=== PATIENT | female | born 1990 | race Caucasian/White ===

== ENCOUNTER 2017-05-22 07:42 | Emergency (ER) | payer MEDICAID ==
[~2017-05-22] VITALS: Ht 175.3 cm; Wt 91.9 kg
[2017-05-22 07:47] VITALS: BP 150/62
--- NOTE | 2017-05-22 07:53 | NUR ---
PATIENT TAKEN TO BED 1
--- NOTE | 2017-05-22 08:00 | NUR ---
PATIENT PRESENTS TO ED WITH C/O EPIGASTRIC PAIN . PT STATES PAIN STARTS AFTER SHE LIFTED HEAVY BOXES;. DENIES N/V/D; SKIN IS PINK/WARM/DRY; AAOX4 WITH EVEN AND STEADY GAIT; LUNGS CLEAR BL; HR EVEN AND REGULAR; PT DENIES ANY FEVER, CP, SOB, OR COUGH AT THIS TIME; PATIENT STATES PAIN OF 5/10 AT THIS TIME;PATIENT POSITIONED FOR COMFORT; HOB ELEVATED; BEDRAILS UP X2; BED DOWN.ALL MONITORS IN PLACED; ER MD MADE AWARE OF PT STATUS.
--- NOTE | 2017-05-22 08:37 | NUR ---
DR ROSENBERG AT BEDSIDE.
--- NOTE | 2017-05-22 08:44 | NUR ---
ULTA SOUND AT BEDSIDE.
[2017-05-22] MEDS ORDERED: NACL 0.9% 1,000 ML IV ONE (08:45)
[2017-05-22] MEDS ORDERED: PANTOPRAZOLE 40 MG INJ VIAL IVP ONE (08:45)
[2017-05-22 09:11] LABS: BASOPHILS # (AUTO) 0.3 K/uL (0.00-0.22); BASOPHILS % (AUTO) 3.5 % (0.0-2.0); EOSINOPHILS # (AUTO) 0.1 K/uL (0-0.4); EOSINOPHILS % (AUTO) 1.5 % (0.0-4.0); HEMATOCRIT 37.6 % (36-48); HEMOGLOBIN 12.6 g/dL (12.0-16.0); LYMPHOCYTES # (AUTO) 1.7 K/uL (2.5-16.5); MEAN CORPUSCULAR HEMOGLOBIN 29 pg (27-31); MEAN CORPUSCULAR HGB CONC 33 g/dL (33-37); MEAN CORPUSCULAR VOLUME 87 fL (80-94); MONOCYTES # (AUTO) 0.5 K/uL (0.8-1.0); MONOCYTES % (AUTO) 5.9 % (1.7-9.3); NEUTROPHILS # (AUTO) 5.1 K/uL (1.8-7.7); NEUTROPHILS % (AUTO) 67.1 % (42.2-75.2); PLATELET COUNT (AUTO) 163 K/uL (140-450); RED BLOOD CELL COUNT(AUTO) 4.31 MIL/uL (4.20-5.40); RED CELL DISTRIBUTION WIDTH 12.8 % (11.6-13.7); WHITE BLOOD COUNT (AUTO) 7.7 K/uL (4.8-10.8)
[2017-05-22 09:29] LABS: CARBON DIOXIDE 25.2 mmol/L (21-32); CREATININE 0.8 mg/dL (0.6-1.3); POTASSIUM 3.2 mmol/L (3.5-5.1)
[2017-05-22 09:34] LABS: ALBUMIN 3.5 g/dL (3.4-5.0); TOTAL BILIRUBIN 0.4 mg/dL (0.0-1.0)
--- NOTE | 2017-05-22 10:03 | NUR ---
PATIENT RESTING COFORTABLY.
[2017-05-22 10:23] LABS: APPEARANCE,URINE CLEAR (CLEAR); BILIRUBIN,URINE NEGATIVE (NEGATIVE); BLOOD, URINE NEGATIVE (NEGATIVE); COLOR,URINE YELLOW (YELLOW); LEUKOCYTE ESTERASE ,URINE NEGATIVE (NEGATIVE); NITRITE, URINE NEGATIVE (NEGATIVE); PH,URINE 6.5 (5.0-9.0); UGLUCOSE NEGATIVE (NEGATIVE)
[2017-05-22 10:33] VITALS: BP 98/62
--- NOTE | 2017-05-22 10:35 | NUR ---
Patient discharged with v/s stable. Written and verbal after care instructions given and explained. Patient alert, oriented and verbalized understanding of instructions. Ambulatory with steady gait. All questions addressed prior to discharge. ID band removed. Patient advised to follow up with PMD. Rx of ZANTAC given. Patient educated on indication of medication including possible reaction and side effects. Opportunity to ask questions provided and answered.
[2017-05-22 10:40] LABS: RBC,URINE 0-5 (RARE) /HPF (0-5); WBC,URINE 0-5 (RARE) /HPF (0-5)
--- NOTE | 2017-05-28 18:54 | NUR ---
Medicatoin amendment: On 05/22/17 Pt pt revieved 999ml of 0.9%NS from 09:32 to 10:30. NS tolerated well.
== END 2017-05-22 10:35 | disposition home or self-care (01) ==
LOC: MED 07:42
DX: O26.891 Other specified pregnancy related conditions, first trimester (principal); K21.9 Gastro-esophageal reflux disease without esophagitis
CPT/HCPCS: 36415; 76801; 76817; 80053; 81001; 81025; 84702; 85025; 86900; 86901; 96361; 96374; 99285; C9113; J7030; Q0092

== ENCOUNTER 2017-05-26 16:35 | Emergency (ER) | payer MEDICAID ==
[~2017-05-26] VITALS: Ht 175.3 cm; Wt 88.6 kg
[2017-05-26 16:43] VITALS: BP 129/64
--- NOTE | 2017-05-26 16:50 | NUR ---
PT AMBULATES BACK TO THE LOBBY AFTER PROVIDING URINE SPECEMIN
--- NOTE | 2017-05-26 20:06 | NUR ---
PATIENT LEFT WITHOUT BEING SEEN BY DR. SOUZA. NO FURTHER CARE PROVIDED FOR PATIENT.
== END 2017-05-26 20:06 | disposition left against medical advice (07) ==
LOC: MED 16:35
DX: R05 Cough (principal); R51 Headache; Z53.21 Procedure and treatment not carried out due to patient leaving prior to being seen by health care provider

== ENCOUNTER 2020-05-08 17:36 | Emergency (ER) | payer MEDICAID ==
[~2020-05-08] VITALS: Ht 175.3 cm; Wt 81.6 kg
[2020-05-08 19:25] VITALS: BP 136/71
--- NOTE | 2020-05-08 19:28 | NUR ---
TO LOBBY A/W BED AMBULATORY
[2020-05-08 19:33] LABS: BASOPHILS % (AUTO) 0.5 % (0.0-2.0); EOSINOPHILS # (AUTO) 0.2 K/uL (0-0.4); HEMATOCRIT 38.2 % (36-48); HEMOGLOBIN 12.5 g/dL (12.0-16.0); LYMPHOCYTES # (AUTO) 2.1 K/uL (2.5-16.5); LYMPHOCYTES % (AUTO) 23.9 % (20.5-51.1); MEAN CORPUSCULAR HEMOGLOBIN 28 pg (27-31); MEAN CORPUSCULAR HGB CONC 33 g/dL (33-37); MEAN CORPUSCULAR VOLUME 86.4 fL (80-94); MONOCYTES # (AUTO) 0.6 K/uL (0.8-1.0); MONOCYTES % (AUTO) 7.2 % (1.7-9.3); NEUTROPHILS # (AUTO) 5.9 K/uL (1.8-7.7); NEUTROPHILS % (AUTO) 66.4 % (42.2-75.2); PLATELET COUNT (AUTO) 219 K/uL (140-450); RED BLOOD CELL COUNT(AUTO) 4.42 MIL/uL (4.20-5.40); RED CELL DISTRIBUTION WIDTH 14.1 % (11.6-13.7); WHITE BLOOD COUNT (AUTO) 8.8 K/uL (4.8-10.8)
[2020-05-08 20:04] LABS: ALBUMIN 3.6 g/dL (3.4-5.0); ANION GAP 9.6 (8-16); CARBON DIOXIDE 27.8 mmol/L (21-32); CREATININE 0.7 mg/dL (0.6-1.3); FREE T4 (FREE THYROXINE) 1.1 ng/dL (0.76-1.46); POTASSIUM 4.4 mmol/L (3.5-5.1); THYROID STIMULATING HORMONE 3.14 uIU/mL (0.34-3.74); TOTAL BILIRUBIN 0.2 mg/dL (0.0-1.0)
== END 2020-05-08 21:56 | disposition home or self-care (01) ==
LOC: MED 17:36
DX: O20.0 Threatened abortion (principal); O21.8 Other vomiting complicating pregnancy; Z3A.01 Less than 8 weeks gestation of pregnancy
CPT/HCPCS: 36415; 76801; 80053; 81002; 81025; 84439; 84443; 84702; 85025; 86900; 86901; 99284

== ENCOUNTER 2021-07-11 17:03 | Emergency (ER) | payer MEDICAID ==
[~2021-07-11] VITALS: Ht 175.3 cm; Wt 103.0 kg
[2021-07-11 17:06] VITALS: BP 115/74
--- NOTE | 2021-07-11 17:10 | NUR ---
31/F AMBULATED TO BED 4, C/O BILATERAL UNDERARM ABSCESSES X4 DAYS, DENIES DRAINAGE OR BLEEDING, DENIES TAKING ANYTHING FOR PAIN. MEDHX: DENIES ALLERGIES: DENIES
[2021-07-11] MEDS ORDERED: KETOROLAC 60 MG/2 ML VIAL IM ONE (17:15)
[2021-07-11] MEDS ORDERED: CEPH-588 PO (17:21)
[2021-07-11] MEDS ORDERED: IBUP-2213 PO (17:21)
[2021-07-11 17:31] VITALS: BP 115/74
--- NOTE | 2021-07-11 17:31 | NUR ---
Patient discharged with v/s stable. Written and verbal after care instructions given and explained. Patient alert, oriented and verbalized understanding of instructions. Ambulatory with steady gait. All questions addressed prior to discharge. ID band removed. Patient advised to follow up with PMD. Rx of KEFLEX, IBUPROFEN given. Patient educated on indication of medication including possible reaction and side effects. Opportunity to ask questions provided and answered.
== END 2021-07-11 17:31 | disposition home or self-care (01) ==
LOC: MED 17:03
DX: L02.412 Cutaneous abscess of left axilla (principal); L02.411 Cutaneous abscess of right axilla; L03.112 Cellulitis of left axilla; L03.111 Cellulitis of right axilla; Z98.890 Other specified postprocedural states
CPT/HCPCS: 96372; 99283; J1885

== ENCOUNTER 2021-12-20 10:58 | Emergency (ER) | payer MEDICAID ==
[~2021-12-20] VITALS: Ht 175.3 cm; Wt 96.7 kg
[~2021-12-20 10:58] MED LIST: CEPH-588 PO; IBUP-2213 PO
[2021-12-20 11:22] VITALS: BP 130/79
[2021-12-20] MEDS ORDERED: IBUP-2213 PO (12:03)
[2021-12-20] MEDS ORDERED: CEPH-588 PO (12:03)
--- NOTE | 2021-12-20 12:17 | NUR ---
31 Y.O. F C/O ABSCESS ON RIGHT SHOULDER BLADE X 1 WEEK. REDNESS AROUND AREA. PT STATED IT GETS VERY ITCHY AND PAIN IS AN 8/10. PT STATES SHE HAS NASEA. DENIES V/D, SOB AND CHEST PAIN. A&OX4, SKIN IS WARM AND DRY, STEADY GAIT, AND VITALS WNL FOR PT. NKA NPMH
[2021-12-20 12:24] VITALS: BP 130/79
== END 2021-12-20 12:25 | disposition home or self-care (01) ==
LOC: MED 10:58
DX: O26.891 Other specified pregnancy related conditions, first trimester (principal); L03.113 Cellulitis of right upper limb; Z3A.01 Less than 8 weeks gestation of pregnancy
CPT/HCPCS: 81025; 99283

== ENCOUNTER 2022-03-04 21:33 | Emergency (ER) | payer MEDICAID ==
[~2022-03-04] VITALS: Ht 175.3 cm; Wt 101.2 kg
[2022-03-04 21:45] VITALS: BP 121/59
--- NOTE | 2022-03-04 21:49 | NUR ---
PT AMBULATED TO ED 8, REPORT GIVEN TO IVANA DAMON
--- NOTE | 2022-03-04 21:54 | NUR ---
Myah hung in [facility] - 03/04/22 at 2154 by LINDSAY US
--- NOTE | 2022-03-04 21:54 | NUR ---
Ultrasound at bedside.
[2022-03-04 22:06] LABS: BASOPHILS % (AUTO) 0.6 % (0.0-2.0); EOSINOPHILS # (AUTO) 0.1 K/uL (0-0.4); EOSINOPHILS % (AUTO) 1.8 % (0.0-4.0); HEMATOCRIT 36.6 % (36-48); HEMOGLOBIN 12.5 g/dL (12.0-16.0); LYMPHOCYTES # (AUTO) 1.9 K/uL (2.5-16.5); LYMPHOCYTES % (AUTO) 26.5 % (20.5-51.1); MEAN CORPUSCULAR HEMOGLOBIN 29 pg (27-31); MEAN CORPUSCULAR HGB CONC 34 g/dL (33-37); MEAN CORPUSCULAR VOLUME 85.1 fL (80-94); MONOCYTES # (AUTO) 0.5 K/uL (0.8-1.0); MONOCYTES % (AUTO) 6.3 % (1.7-9.3); NEUTROPHILS # (AUTO) 4.7 K/uL (1.8-7.7); NEUTROPHILS % (AUTO) 64.8 % (42.2-75.2); PLATELET COUNT (AUTO) 205 K/uL (140-450); RED CELL DISTRIBUTION WIDTH 14.9 % (11.6-13.7); WHITE BLOOD COUNT (AUTO) 7.3 K/uL (4.8-10.8)
[2022-03-04] MEDS ORDERED: ACETAMINOPHEN EXTRA STRENGTH 500 MG TAB PO ONE (22:10)
--- NOTE | 2022-03-04 22:10 | NUR ---
Dr. Cobb examining patient.
[2022-03-04 22:35] LABS: APPEARANCE,URINE CLEAR (CLEAR); BILIRUBIN,URINE NEGATIVE (NEGATIVE); BLOOD, URINE NEGATIVE (NEGATIVE); COLOR,URINE YELLOW (YELLOW); LEUKOCYTE ESTERASE ,URINE TRACE (NEGATIVE); NITRITE, URINE NEGATIVE (NEGATIVE); PH,URINE 7.5 (5.0-9.0); UGLUCOSE NEGATIVE (NEGATIVE)
--- NOTE | 2022-03-04 22:41 | NUR ---
URINE COLLECTED AND SENT TO LAB
[2022-03-04 22:45] LABS: RBC,URINE 0-5 /HPF (0-5); WBC,URINE 0-5 /HPF (0-5)
--- NOTE | 2022-03-04 22:45 | NUR ---
31YR OLD FEMALE BIB SELF C/O OF ABD CRAMPING X1DAY. PT IS 16 WKS PREG. DENIES VAG BLEEDING OR DISCHARGE. DENIES PAIN BUT HAS DISCOMFORT WITH CRAMPING. ULTRASOUND DONE AT BEDSIDE. PT IS A&OX4 SKIN WARM DRY AND INTACT. NO DISTRESS NOTED. NKDA NO MED HX
[2022-03-04] MEDS ORDERED: ACET-10509 PO (22:50)
[2022-03-04] MEDS ORDERED: NITR100C7 PO (22:50)
--- NOTE | 2022-03-04 23:07 | NUR ---
Patient discharged with v/s stable. Written and verbal after care instructions given and explained. Patient alert, oriented and verbalized understanding of instructions. Ambulatory with steady gait. All questions addressed prior to discharge. ID band removed. Patient advised to follow up with PMD. Rx of TYLENOL EXTRA STRENGTH given.
--- NOTE | 2022-03-04 23:08 | NUR ---
The patient's care was reviewed and supervised by Kajal Ortega RN.
== END 2022-03-04 23:07 | disposition home or self-care (01) ==
LOC: MED 21:33
DX: O20.0 Threatened abortion (principal); O28.8 Other abnormal findings on antenatal screening of mother; Z3A.16 16 weeks gestation of pregnancy
CPT/HCPCS: 36415; 76815; 81001; 81025; 85025; 87086; 99284; Q0092

== ENCOUNTER 2023-10-08 19:48 | Emergency (ER) | payer MEDICAID ==
[~2023-10-08] VITALS: Ht 175.3 cm; Wt 101.6 kg
[~2023-10-08 19:48] MED LIST changes: +ACET-10509 PO; +NITR100C7 PO
[2023-10-08 19:53] VITALS: BP 107/68; PULSE 104; RESP 18; TEMP 98.8; O2SAT 100
[2023-10-08 21:03] LABS: BASOPHILS % (AUTO) 0.4 % (0.0-2.0); EOSINOPHILS # (AUTO) 0.2 K/uL (0-0.4); EOSINOPHILS % (AUTO) 2.1 % (0.0-4.0); HEMOGLOBIN 12.8 g/dL (12.0-16.0); LYMPHOCYTES # (AUTO) 1.4 K/uL (2.5-16.5); LYMPHOCYTES % (AUTO) 15.7 % (20.5-51.1); MEAN CORPUSCULAR HEMOGLOBIN 28 pg (27-31); MEAN CORPUSCULAR HGB CONC 34 g/dL (33-37); MEAN CORPUSCULAR VOLUME 84.1 fL (80-94); MONOCYTES # (AUTO) 0.4 K/uL (0.8-1.0); MONOCYTES % (AUTO) 4.3 % (1.7-9.3); NEUTROPHILS % (AUTO) 77.5 % (42.2-75.2); PLATELET COUNT (AUTO) 203 K/uL (140-450); RED BLOOD CELL COUNT(AUTO) 4.52 MIL/uL (4.20-5.40); RED CELL DISTRIBUTION WIDTH 14.7 % (11.6-13.7)
[2023-10-08] MEDS: NACL 0.9% 1,000 ML IV ONE (21:03)
[2023-10-08] MEDS: KETOROLAC 30 MG/ML VIAL IVP ONE (21:03)
[2023-10-08 21:12] LABS: ANION GAP 10.8 (8-16); CALCIUM 8.4 mg/dL (8.5-10.1); CARBON DIOXIDE 29.5 mmol/L (21-32); CREATININE 0.9 mg/dL (0.6-1.3); POTASSIUM 3.3 mmol/L (3.5-5.1)
[2023-10-08 21:19] LABS: ALBUMIN 3.4 g/dL (3.4-5.0); BILIRUBIN,DIRECT 0.1 mg/dL (0.0-0.3); TOTAL BILIRUBIN 0.5 mg/dL (0.0-1.0); TOTAL PROTEIN, SERUM 7.1 g/dL (6.4-8.2)
[2023-10-08] MEDS: MORPHINE SULFATE 4 MG/ML SYR IV ONE (21:37)
[2023-10-08 21:49] LABS: APPEARANCE,URINE CLEAR (CLEAR); BILIRUBIN,URINE NEGATIVE (NEGATIVE); BLOOD, URINE TRACE-I (NEGATIVE); COLOR,URINE YELLOW (YELLOW); LEUKOCYTE ESTERASE ,URINE 2+ (NEGATIVE); NITRITE, URINE NEGATIVE (NEGATIVE); PROTEIN,URINE TRACE (NEGATIVE); UGLUCOSE NEGATIVE (NEGATIVE); UROBILINOGEN,URINE 0.2 EU/dL (0.2 - 1)
[2023-10-08 22:05] LABS: BACTERIA,URINE FEW /HPF (None Seen); MUCUS,URINE None Seen /LPF (None Seen); RBC,URINE 0-5 /HPF (0-5); SQUAMOUS EPITHELIAL CELL,UR 0-3 (FEW) /LPF (0-3 (FEW)); WBC,URINE 80-100 /HPF (0-5)
[2023-10-08] MEDS ORDERED: cefTRIAXone 1,000 MG VIAL ONE (22:16)
[2023-10-08 22:33] VITALS: TEMP 98.8
[2023-10-08] MEDS ORDERED: IBUP-2213 PO (22:41)
[2023-10-08] MEDS ORDERED: CEPH-588 PO (22:41)
[2023-10-08 23:00] VITALS: BP 111/72; PULSE 94; RESP 18; O2SAT 98
== END 2023-10-08 23:04 | disposition home or self-care (01) ==
LOC: MED 19:48
DX: N39.0 Urinary tract infection, site not specified (principal); Z98.51 Tubal ligation status; Z79.1 Long term (current) use of non-steroidal anti-inflammatories (NSAID); Z79.899 Other long term (current) drug therapy
CPT/HCPCS: 36415; 74176; 76856; 80048; 80076; 81001; 81025; 83690; 85025; 87086; 87186; 93976; 96361; 96365; 96375; 99285; J0696; J1885; J2270; J7030; Q0092; 96374